=== PATIENT | female | born 1950 | race Two or more races ===

== ENCOUNTER 2021-10-05 20:58 | Emergency (ER) | payer OTHER ==
[~2021-10-05] VITALS: Ht 154.9 cm; Wt 79.0 kg
[2021-10-06 03:40] VITALS: BP 150/62
== END 2021-10-06 03:56 | disposition home or self-care (01) ==
LOC: ER 21:01
DX: S90.121A Contusion of right lesser toe(s) without damage to nail, initial encounter (principal); E11.9 Type 2 diabetes mellitus without complications; K21.9 Gastro-esophageal reflux disease without esophagitis; E78.5 Hyperlipidemia, unspecified; I10 Essential (primary) hypertension; X58.XXXA Exposure to other specified factors, initial encounter; Y93.01 Activity, walking, marching and hiking; Y92.89 Other specified places as the place of occurrence of the external cause; Y99.8 Other external cause status
CPT/HCPCS: 73660; 82962